=== PATIENT | male | born 1965 | race Caucasian/White ===

== ENCOUNTER 2017-12-31 07:12 | Day surgery (SDC) | payer OTHER, BC ==
[2017-12-31] MEDS ORDERED: BUPIVACAINE HCL 0.5% MPF 10 ML SOL ONE (07:31)
[2017-12-31] MEDS ORDERED: LIDOCAINE HCL 2% MPF 10 ML SOL ONE (07:31)
[2017-12-31] MEDS ORDERED: PROPOFOL 500 MG/50 ML EMU IV ONE (07:44)
[2017-12-31] MEDS ORDERED: FENTANYL 100MCG/2ML SOL ONE (07:44)
[2017-12-31] MEDS ORDERED: MIDAZOLAM 2 MG/2 ML SOL ONE (07:44)
[2017-12-31] MEDS ORDERED: KETOROLAC TROMETHAMINE 30 MG/ML SOL ONE (09:23)
[2017-12-31] MEDS ORDERED: KETOROLAC TROMETHAMINE 30 MG/ML SOL IV ONE (09:25)
[2017-12-31 09:55] VITALS: O2SAT 18
== END 2017-12-31 09:50 | disposition home or self-care (01) | DRG 951 ==
LOC: SURG 07:12
PROVIDERS: ATTEND Orthopaedic Surgery
DX: Z18.89 Other specified retained foreign body fragments (principal); E11.9 Type 2 diabetes mellitus without complications
CPT/HCPCS: 82962; J1885; J2250; J3010; J2704